=== PATIENT | male | born 1950 | race Caucasian/White ===

== ENCOUNTER 2019-10-07 21:32 | Observation (INO) | payer MEDICARE, BC ==
[2019-10-07] MEDS ORDERED: METOCLOPRAMIDE 5 MG/ML 2 ML VIAL IVP STA (21:57)
[2019-10-07] MEDS ORDERED: GLUCAGON 1 MG/ML VIAL IVP STA (21:58)
[2019-10-07] MEDS ORDERED: DIAZEPAM 5 MG/ML 2 ML INJ IVP STA (21:58)
--- NOTE | 2019-10-07 22:02 | ED ---
General Adult HPI - General Source: patient, family Mode of arrival: ambulatory Limitations: no limitations <Virgilio Lopez - Last Filed: 10/07/19 23:35> <Karey Albrecht - Last Filed: 10/08/19 01:26> - General Chief complaint: ENT Stated complaint: FB throat Time Seen by Provider: 10/07/19 21:42 - History of Present Illness Initial comments: Patient is 68-year-old male presenting to emergency Department with a chief complaint of a piece of foreign body stuck in the esophagus. Patient reports he was eating ham when part of it became stuck in the esophagus. The incident occurred at 1500. Patient reports she has not been able to swallow any liquids or solids afterward. Patient reports some chest pressure with a food is stuck. Patient reports going to an urgent care and another emergency department who redirected him to a higher acuity ED. Patient denies any vomiting at this time. He denies any attempts to dislodge the foreign body. (Virgilio Lopez) - Related Data Allergies Allergy/AdvReac Type Severity Reaction Status Date / Time amoxicillin Allergy Rash/Hives Verified 10/07/19 23:38 Review of Systems ROS Other: All systems not noted in ROS Statement are negative. <Virgilio Lopez - Last Filed: 10/07/19 23:35> ROS Other: All systems not noted in ROS Statement are negative. <Karey Albrecht P - Last Filed: 10/08/19 01:26> ROS Statement: Those systems with pertinent positive or pertinent negative responses have been documented in the HPI. Past Medical History Past Medical History: Hypertension History of Any Multi-Drug Resistant Organisms: None Reported Past Surgical History: Hernia Repair Past Psychological History: No Psychological Hx Reported Smoking Status: Former smoker Past Alcohol Use History: None Reported Past Drug Use History: None Reported <Virgilio Lopez - Last Filed: 10/07/19 23:35> - Past Family History Father Family Medical History: Cancer Additional Family Medical History / Comment(s): Pancreatic cancer, passed. Mother Family Medical History: Dementia, Hypertension Additional Family Medical History / Comment(s): Poor circulation Grandfather Family Medical History: Myocardial Infarction ([place]) Additional Family Medical History / Comment(s): Passed <Karey Albrecht P - Last Filed: 10/08/19 01:26> General Exam Limitations: no limitations General appearance: alert, in no apparent distress Head exam: Present: atraumatic, normocephalic, normal inspection Eye exam: Present: normal appearance, PERRL, EOMI Pupils: Present: normal accommodation ENT exam: Present: normal exam, mucous membranes moist Neck exam: Present: normal inspection, full ROM Respiratory exam: Present: normal lung sounds bilaterally. Absent: chest wall tenderness (No reproducible chest pain with palpation.) Cardiovascular Exam: Present: regular rate, normal rhythm, normal heart sounds Extremities exam: Present: normal inspection, full ROM Back exam: Present: normal inspection, full ROM Neurological exam: Present: alert, oriented X3 Psychiatric exam: Present: normal affect, normal mood Skin exam: Present: warm, dry, intact, normal color <Virgilio Lopez - Last Filed: 10/07/19 23:35> Course Vital Signs 10/07/19 10/07/19 10/07/19 21:35 22:29 22:37 Temperature 98.2 F Pulse Rate 90 85 107 H Respiratory 18 18 18 Rate Blood Pressure 185/90 172/96 161/83 O2 Sat by Pulse 98 96 95 Oximetry 10/07/19 10/07/19 22:39 23:49 Temperature Pulse Rate 102 H 71 Respiratory 18 18 Rate Blood Pressure 156/95 155/87 O2 Sat by Pulse 97 96 Oximetry Medical Decision Making <Virgilio Lopez - Last Filed: 10/07/19 23:35> <Karey Albrecht P - Last Filed: 10/08/19 01:26> - Medical Decision Making Patient is 68-year-old male presenting to emergency Department with a chief complaint of esophageal foreign body. He has a piece of ham stuck in his esophagus. This happened at 1500 today. Examination is unremarkable. No reducible chest pain with palpation although he states he can feel the pressure in his chest from the foreign body in esophagus. Reglan, sublingual O, Valium and glucagon were administered and patient was given 8 carbonated drink. Patient was not able to dislodge the foreign body. He Vomiting the carbonated drink. At this time, Dr. King was contacted who is going to see the patient in the morning. Patient will be admitted for observation. Dr. Louis will be adm itting physician. Dr. King consulted. Case discussed with Dr. Albrecht. (Virgilio Lopez) I personally saw and evaluated the patient was still holding a vomit basin and spitting and he is not able to tolerate oral secretions. Patient failed treatments glucagon and Reglan. Patient care was discussed with Dr. King who recommends placing the patient in observation, nothing by mouth status, IV fluids and plan for endoscopy in the morning. She will be admitted to the medicine on-call with Dr. King consult. (Karey Albrecht) Disposition Is patient prescribed a controlled substance at d/c from ED?: No Time of Disposition: 23:39 <Virgilio Lopez - Last Filed: 10/07/19 23:35> <Karey Albrecht - Last Filed: 10/08/19 01:26> Clinical Impression: Impacted esophageal foreign body Disposition: ADMITTED IP TO THIS HOSP Condition: Stable
[2019-10-07] MEDS ORDERED: NITROGLYCERIN SL TABS 0.4 MG TAB SUBLINGUAL STA (22:25)
[2019-10-07] MEDS ORDERED: NALOXONE 0.4 MG/ML 1 ML VIAL IV PRN (22:55)
[2019-10-07] MEDS: SODIUM CHLORIDE 0.9% 1,000 ML IV SCH (23:45)
[2019-10-08] MEDS ORDERED: MORPHINE SULFATE 2 MG/ML SYRINGE IVP PRN (01:00)
[2019-10-08 05:32] VITALS: PULSE 79; TEMP 98
[2019-10-08] MEDS: SODIUM CHLORIDE 0.9% 1,000 ML IV SCH (08:54)
[2019-10-08] MEDS ORDERED: IV FLUID CONTINUATION 1,000 ML IV ONE ×2 (10:35)
[2019-10-08] MEDS ORDERED: LIDOCAINE 1% INJ 10MG/ML (20 ML MDV) ONE (10:36)
[2019-10-08] MEDS ORDERED: PROPOFOL 10 MG/ML 20 ML VIAL IV ONE (10:36)
--- NOTE | 2019-10-08 10:49 | P.PCN ---
Date of Procedure: 10/08/19 Procedure(s) Performed: BRIEF HISTORY: Patient is a 68-year-old, pleasant, male, admitted hospital with acute food dysphagia. He presents to the emergency room last night with difficulty swallowing after having dinner. He was given glucagon with no help.. His and scheduled for an upper endoscopyl today.. PROCEDURE PERFORMED: Esophagogastroduodenoscopy with biopsy. PREOPERATIVE DIAGNOSIS: Acute food impaction. IV sedation per anesthesia. PROCEDURE: After informed consent was obtained, the patient was brought into the endoscopy unit. IV sedation was administered by Anesthesia under continuous monitoring. Initially the Olympus GIF-140 video endoscope was inserted into the mouth. Esophagus intubated without any difficulty. It was gradually advanced into the stomach and duodenum and carefully examined. The bulb and the second part of the duodenum appeared normal. The scope at this time was withdrawn to the stomach, adequately insufflated with air, and upon careful examination, mucosa of the antrum, body, cardia and the fundus appeared normal. The scope was then withdrawn into the esophagus. The GE junction was located at 39 cm from the incisors. There was early distal esophageal stricture noted. No food impaction identified. There were erosions and erythema and friability of the mucosa in the distal esophagus consistent with severe reflux esophagitis. The rest of the esophagus appeared normal. Ther patient tolerated the procedure well. IMPRESSION: 1. Early distal esophageal stricture with severe esophagitis with mucosal erythema friability and the site of food impaction. 2. Small sliding Hiatal hernia. RECOMMENDATIONS: The findings of this examination were discussed with the patient . He will be on a soft diet today. Continue with Protonix 40 mg daily. Can be discharged home today with outpatient follow-up in 2 weeks..
[2019-10-08] MEDS ORDERED: PANTOPRAZOLE 40 MG TABLET PO SCH (11:00)
[2019-10-08 11:27] VITALS: BP 142/81; RESP 17
--- NOTE | 2019-10-08 14:27 | P.HPIM ---
History of Present Illness 68-year-old male came in with her friends of dysphagia with a foreign body stuck in his esophagus. Patient underwent upper GI endoscopy which showed esophagitis and gastritis with the constricted distal esophagus with a stricture and severe esophagitis. There is a sliding hiatal hernia which was small. Patient will be discharged on Prilosec patient will follow-up with gastroenterology as an outpatient patient is able to tolerate full liquid diet patient was asked to stay on soft diet. Patient has a retained food an upper GI endoscopy Review of Systems REVIEW OF SYSTEMS: CONSTITUTIONAL: No fever, no malaise, no fatigue. HEENT: No recent visual problems or hearing problems. Denied any sore throat. CARDIOVASCULAR: No chest pain, orthopnea, PND, no palpitations, no syncope. PULMONARY: No shortness of breath, no cough, no hemoptysis. GASTROINTESTINAL: No diarrhea, no nausea, no vomiting, no abdominal pain. NEUROLOGICAL: No headaches, no weakness, no numbness. HEMATOLOGICAL: Denies any bleeding or petechiae. GENITOURINARY: Denies any burning micturition, frequency, or urgency. MUSCULOSKELETAL/RHEUMATOLOGICAL: Denies any joint pain, swelling, or any muscle pain. ENDOCRINE: Denies any polyuria or polydipsia. The rest of the 14-point review of systems is negative. Past Medical History Past Medical History: Hyperlipidemia, Hypertension, Osteoarthritis (OA), Rheumatoid Arthritis (RA) Additional Past Medical History / Comment(s): hypothyroidism, BPH, History of Any Multi-Drug Resistant Organisms: None Reported Past Surgical History: Hernia Repair Past Anesthesia/Blood Transfusion Reactions: No Reported Reaction Past Psychological History: No Psychological Hx Reported Smoking Status: Former smoker Past Alcohol Use History: None Reported Past Drug Use History: None Reported - Past Family History Father Family Medical History: Cancer Additional Family Medical History / Comment(s): Pancreatic cancer, passed. Mother Family Medical History: Dementia, Hypertension Additional Family Medical History / Comment(s): Poor circulation Grandfather Family Medical History: Myocardial Infarction ([place]) Additional Family Medical History / Comment(s): Passed Medications and Allergies Home Medications Medication Instructions Recorded Confirmed Type Adalimumab [Humira(Cf) Pen] 40 mg SQ Q14D 10/07/19 10/07/19 History Atorvastatin Calcium [Lipitor] 40 mg PO HS 10/07/19 10/07/19 History Co Q-10(Unknown Dose) 1 tab PO DAILY 10/07/19 10/07/19 History HYDROcodone/APAP 10-325MG [[place] 1 tab PO TID 10/07/19 10/07/19 History 10-325] Levothyroxine Sodium [Synthroid] 25 mcg PO Q48H 10/07/19 10/07/19 History Levothyroxine Sodium [Synthroid] 37.5 mcg PO Q48H 10/07/19 10/07/19 History Losartan [Cozaar] 25 mg PO DAILY 10/07/19 10/07/19 History Tamsulosin HCl [Flomax] 0.4 mg PO HS 10/07/19 10/07/19 History Vitamin B-12(Unknown Dose) 1 tab PO DAILY 10/07/19 10/07/19 History Vitamin D3(Unknown Dose) 1 tab PO DAILY 10/07/19 10/07/19 History amLODIPine [Norvasc] 10 mg PO DAILY 10/07/19 10/07/19 History Omeprazole [PriLOSEC] 40 mg PO AC-BRKFST #14 capsule. 10/08/19 Rx Allergies Allergy/AdvReac Type Severity Reaction Status Date / Time amoxicillin Allergy Rash/Hives Verified 10/07/19 23:38 Physical Exam Vitals: Vital Signs Temp Pulse Pulse Pulse Resp BP BP 10/08/19 11:27 98 F 79 17 142/81 10/08/19 05:00 98 F 79 18 138/84 10/08/19 00:14 98.6 F 68 18 157/78 10/07/19 23:49 71 18 155/87 10/07/19 22:39 102 H 18 156/95 10/07/19 22:37 107 H 18 161/83 10/07/19 22:29 85 18 172/96 10/07/19 21:35 98.2 F 90 18 185/90 Pulse Ox 10/08/19 11:27 100 10/08/19 05:00 96 10/08/19 00:14 97 10/07/19 23:49 96 10/07/19 22:39 97 10/07/19 22:37 95 10/07/19 22:29 96 10/07/19 21:35 98 Intake and Output 10/07/19 10/08/19 10/08/19 22:59 06:59 14:59 Intake Total 800 200 Balance 800 200 Intake: IV 200 Intake, IV Titration 800 Amount Sodium Chloride 0.9% 1, 800 000 ml @ 100 mls/hr IV . Q10H [facility] Rx#:[id number] Other: Voiding Method Toilet # Voids 1 Weight 81.647 kg 84 kg PHYSICAL EXAMINATION: GENERAL: The patient is alert and oriented x3, not in any acute distress. Well developed, well nourished. HEENT: Pupils are round and equally reacting to light. EOMI. No scleral icterus. No conjunctival pallor. Normocephalic, atraumatic. No pharyngeal erythema. No thyromegaly. CARDIOVASCULAR: S1 and S2 present. No murmurs, rubs, or gallops. PULMONARY: Chest is clear to auscultation, no wheezing or crackles. ABDOMEN: Soft, nontender, nondistended, normoactive bowel sounds. No palpable organomegaly. MUSCULOSKELETAL: No joint swelling or deformity. EXTREMITIES: No cyanosis, clubbing, or pedal edema. NEUROLOGICAL: Gross neurological examination did not reveal any focal deficits. SKIN: No rashes. Thrombosis Risk Factor Assmnt - Choose All That Apply Each Factor Represents 1 point: Obesity (BMI >25) Each Risk Factor Represents 2 Points: Immobilizing plaster cast Other congenital or acquired thrombophilia - If yes, enter type in comment: No Thrombosis Risk Factor Assessment Total Risk Factor Score: 3 Thrombosis Risk Factor Assessment Level: Moderate Risk Assessment and Plan Plan: -Dysphagia: secondary to distal Esophageal stricture, had a retained food there and stricture is secondary to chronic esophagitis and gastritis from sliding hiatal hernia. Patient underwent upper GI endoscopy dilatation of stricture and is being discharged today. -Gastritis and esophagitis -Hypertension -hyperlipidemia -Rheumatoid arthritis -Benign prostatic hypertrophic -Hypothyroidism For above-mentioned chronic medical problems patient will resume his home medications starting tomorrow patient will be discharged
--- NOTE | 2019-10-08 14:29 | P.DS ---
Providers Date of admission: 10/07/19 22:57 Attending physician: Mary Vera Consults: 10/07/19 22:55 Consult Physician Stat Consulting Provider: Jo Ann King Consult Reason/Comments: esophageal food bolus Do you want consulting provider notified?: Already Contacted Primary care physician: Kacy Perez MD Hospital Course: As mentioned in HPI Patient Condition at Discharge: Stable Plan - Discharge Summary Discharge Rx Participant: No New Discharge Prescriptions: New Omeprazole [PriLOSEC] 40 mg PO -BRKFST #14 capsule.dr Continue Tamsulosin HCl [Flomax] 0.4 mg PO HS Losartan [Cozaar] 25 mg PO DAILY Levothyroxine Sodium [Synthroid] 37.5 mcg PO Q48H Levothyroxine Sodium [Synthroid] 25 mcg PO Q48H HYDROcodone/APAP 10-325MG [[place] 10-325] 1 tab PO TID Atorvastatin Calcium [Lipitor] 40 mg PO HS Adalimumab [Humira(Cf) Pen] 40 mg SQ Q14D amLODIPine [Norvasc] 10 mg PO DAILY Vitamin D3(Unknown Dose) 1 tab PO DAILY Vitamin B-12(Unknown Dose) 1 tab PO DAILY Co Q-10(Unknown Dose) 1 tab PO DAILY Discharge Medication List Adalimumab [Humira(Cf) Pen] 40 mg SQ Q14D 10/07/19 [History] Atorvastatin Calcium [Lipitor] 40 mg PO HS 10/07/19 [History] Co Q-10(Unknown Dose) 1 tab PO DAILY 10/07/19 [History] HYDROcodone/APAP 10-325MG [[place] 10-325] 1 tab PO TID 10/07/19 [History] Levothyroxine Sodium [Synthroid] 25 mcg PO Q48H 10/07/19 [History] Levothyroxine Sodium [Synthroid] 37.5 mcg PO Q48H 10/07/19 [History] Losartan [Cozaar] 25 mg PO DAILY 10/07/19 [History] Tamsulosin HCl [Flomax] 0.4 mg PO HS 10/07/19 [History] Vitamin B-12(Unknown Dose) 1 tab PO DAILY 10/07/19 [History] Vitamin D3(Unknown Dose) 1 tab PO DAILY 10/07/19 [History] amLODIPine [Norvasc] 10 mg PO DAILY 10/07/19 [History] Omeprazole [PriLOSEC] 40 mg PO GUERO-BRKFST #14 capsule. 10/08/19 [Rx] Follow up Appointment(s)/Referral(s): Jo Ann King MD [STAFF PHYSICIAN] - 2 Weeks Kacy Perez MD [Primary Care Provider] - 3 Days Discharge Disposition: HOME SELF-CARE
--- NOTE | 2019-10-08 15:03 | CONS ---
CONSULTATION REASON FOR CONSULTATION: Acute food dysphagia. HISTORY OF PRESENT ILLNESS: The patient is a 68-year-old white male admitted to the hospital with acute food dysphagia. He was eating [place] dinner and he felt that the food was stuck in his esophagus. He tried to swallow, no help. He wanted for a couple of hours and he continued to progressively get worse. He came to the emergency room last night and he was subsequently admitted to the hospital to observation. This morning the patient states he still feels as of food is stuck in his lower esophagus. He never had these symptoms in the past. No history of dysphagia. No history of gastroesophageal reflux disease. Never had an upper endoscopy in the past. He was given Glucagon in the emergency room with no help. He remains comfortable. PAST MEDICAL HISTORY: Past medical history is significant for hypertension. PAST SURGICAL HISTORY: Hernia repair. MEDICATIONS AT HOME: Norvasc, Cozaar, Flomax, Synthroid, Lipitor, and Humira. ALLERGIES: AMOXICILLIN. SOCIAL HISTORY: No smoking or alcohol use. FAMILY HISTORY: Family history is unremarkable. REVIEW OF SYSTEMS: CARDIOPULMONARY: No chest pain or shortness of breath. GENITOURINARY: No dysuria or hematuria. MUSCULOSKELETAL: Unremarkable. SKIN: Unremarkable. ENDOCRINE: Unremarkable. PSYCHIATRIC: Unremarkable. NEUROLOGY: Unremarkable. ENT/VISION: Unremarkable. CONSTITUTIONAL: No recent weight loss. No fever, chills, night sweats. PHYSICAL EXAMINATION: On physical examination, he appears comfortable in no apparent distress. Vital signs stable. Blood pressure is 138/84, pulse is 79, temperature 98. HEENT EXAMINATION: Unremarkable. Conjunctivae pink. Sclerae anicteric. Oral cavity no lesions. NECK: No JVD or lymph node enlargement. CHEST: Clear to auscultation. HEART: Regular rate and rhythm. ABDOMEN: Soft. Pulses are positive. No organomegaly. EXTREMITIES: No pedal edema. SKIN: No rashes. NEURO: Alert and oriented x3. No focal deficits. No laboratories today ordered. IMPRESSION: Acute food dysphagia. The patient was eating [place] dinner last evening, had a piece of ham stuck in the esophagus, came to the emergency room at night and subsequently admitted to the hospital for observation. This morning he still feels he has a sensation of food that is stuck in the lower sternal area. He is able to swallow his secretions and remains comfortable. Never had these symptoms in the past. No history of reflux symptoms or heartburn. RECOMMENDATIONS: Will proceed with an esophagogastroduodenoscopy with foreign body removal. Discussed with the patient the risks, benefits, and complications. He is agreeable to it. Thank you for this consultation. ADRIEN / LOULOU: [id number] /
== END 2019-10-08 15:38 | disposition home or self-care (01) ==
LOC: EC 21:32 → 5NMEDONC 22:57
PROVIDERS: ADMIT Hospitalist; ATTEND Hospitalist
DX: K22.2 Esophageal obstruction (principal); K20.9 Esophagitis, unspecified; K44.9 Diaphragmatic hernia without obstruction or gangrene; I10 Essential (primary) hypertension; M06.9 Rheumatoid arthritis, unspecified; E78.5 Hyperlipidemia, unspecified; M19.90 Unspecified osteoarthritis, unspecified site; N40.0 Benign prostatic hyperplasia without lower urinary tract symptoms; E03.9 Hypothyroidism, unspecified; Z87.891 Personal history of nicotine dependence; Z88.1 Allergy status to other antibiotic agents; Z80.42 Family history of malignant neoplasm of prostate; Z82.49 Family history of ischemic heart disease and other diseases of the circulatory system; Z81.8 Family history of other mental and behavioral disorders; Z79.890 Hormone replacement therapy; Z79.899 Other long term (current) drug therapy
CPT/HCPCS: 96375 ×2; 96374; 99284; 88305; 88312; 43239; G0378 ×2; J1610; J2765; J3360; J2001; J2270; J2704

== ENCOUNTER → 2023-06-05 | Outpatient (CLI) | payer MEDICARE, BC ==
[2023-06-05 16:15] LABS: HGB 15.2 d/dL (13.0-17.0); MCHC 33.8 d/dL (32.0-37.0); MCV 94.7 FL (80.0-97.0); Mean Platelet Volume 10.1 FL (9.5-12.2); NRBC Per 100 WBC 0 X 10*3/uL (0.00-0.01); Platelet Count 257 X 10*3/uL (140-440); RBC 4.75 X 10*6/uL (4.40-5.60); RDW 13.2 % (11.5-14.5); WBC 9.44 X 10*3/uL (4.50-10.00)
[2023-06-05 16:38] LABS: BUN/Creat Ratio 12.91 Ratio (12.00-20.00); Blood Urea Nitrogen 14.2 mg/dL (9.0-27.0); Chloride 104 mmol/L (96-109); Chol/HDL Ratio 3.69 Ratio; Glucose 91 mg/dL (70-110); LDL Cholesterol,Calculated 90.4 mg/dL (0.0-131.0); Sodium 140 mmol/L (135-145)
[2023-06-05 16:39] LABS: ALT 30 U/L (10-49); AST 35 U/L (14-35)
== END | disposition home or self-care (01) ==
LOC: LABWHC1 10:35
PROVIDERS: ATTEND Internal Medicine Cardiovascular Disease
DX: E78.2 Mixed hyperlipidemia (principal)
CPT/HCPCS: 36415; 80048; 80061; 84450; 84460; 85027